=== PATIENT | male | born 1995 | race African-American/Black ===

== ENCOUNTER 2016-11-06 02:59 | Emergency (ER) | payer OTHER ==
[~2016-11-06] VITALS: Ht 193 cm; Wt 140.0 kg
[2016-11-06 03:03] VITALS: TEMP 36.9; Ht 193 cm; Wt 140.0 kg
[2016-11-06] MEDS ORDERED: FENTANYL CITRATE INJ 50 MCG/1 ML 2 ML VIAL IV STA ×2 (03:14→03:36)
[2016-11-06] MEDS ORDERED: SODIUM CHLORIDE 0.9% 1000ML 1,000 ML IV STA (03:14)
--- NOTE | 2016-11-06 03:23 | EMERGENCY ROOM VISIT NOTE ---
History Report prepared by Viktoriya: Dagmar Lyons Under the Supervision of: Dr. Lupe Kirkland M.D. First contact with patient: 03:13 Chief Complaint: ANKLE PAIN Stated Complaint: RIGHT ANKLE INJURY History of Present Illness The patient is a 21 year old male who presents to the Emergency Room with complaints of persistent right ankle pain that began prior to arrival. He currently rates his discomfort as an 8/10 in severity. The patient states that this evening he was drinking alcohol and fell down concrete stairs. He states that he looked back at his friends which caused him to fall down the stairs. The patient additionally notes that he hit his head during the fall. The patient denies any drug use. The patient's friends note that the patient is on the football team and they consulted their team doctor who instructed to bring the patient to the emergency department for further evaluation and treatment. Source of History: patient, friend Onset: prior to arrival Position: ankle (right) Symptom Intensity: 8/10 Timing: other (persistent) Note: Associated Symptoms: fall down the steps, head injury Review of Systems See HPI for pertinent positives & negatives. A total of 10 systems reviewed and were otherwise negative. Past Medical & Surgical No active medical problems. Family History No pertinent family history stated. Social History Smoking Status: Never Smoker Alcohol Use: occasionally Marital Status: single Occupation Status: [employer] student Current/Historical Medications Scheduled [Unknown Abx], 1 CAP PO BID Scheduled PRN Hydrocodone/Acetaminophen 5MG/325MG (Keene 5MG/325MG), 1-2 TABLETS PO Q6 PRN for Pain Pseudoephedrine (Sudafed), 30 MG PO TID PRN for congestion Pseudoephedrine-Guaifenesin (Mucinex D), 1 TAB PO BID PRN for CONGESTION Allergies Coded Allergies: No Known Allergies (Unverified , 11/06/16) Physical Exam Vital Signs Date Time Temp Pulse Resp B/P Pulse Ox O2 Delivery O2 Flow Rate FiO2 11/06/16 05:37 83 16 128/70 99 11/06/16 03:54 105 21 154/83 100 Nasal Cannula 2.0 11/06/16 03:21 101 11/06/16 03:03 36.9 110 20 147/93 96 Room Air Physical Exam Vital signs reviewed. General: Well-appearing male, in no significant distress. HEENT: Quarter size ecchymotic swelling to the left lateral bridge. No scleral icterus, PERRLA, neck supple, non-tender cervical spine. Cardiovascular: Regular rate and rhythm, no extra sounds. Pulmonary: Clear to auscultation bilaterally, normal work of breathing. Abdomen: Soft, nontender, nondistended, positive bowel sounds. Musculoskeletal: Obvious deformity of the right ankle with lateral deviation of the foot. Tenting at the medial malleolus. No open skin. Neurovascularly intact distally. Neurologic: Patient awake alert and oriented x 3, full strength in all 4 extremities. Cranial nerves 2 through 12 grossly intact. Skin: Warm, dry, no rash Medical Decision & Procedures ER Provider Diagnostic Interpretation: Radiology results as stated below per my review and radiologist interpretation: CT Head: No ICH, mass effect or edema. No skull fracture. Ethmoid and maxillary sinus disease. CT C spine: No evidence of fracture or malalignment. Straightening of the cervical lordosis likely relates to muscle spasm or positioning. Radiologist: Nick Boland MD Study read at [id number] and initial results transmitted at 7617 2 view right ankle x-ray: distal fibular fracture, laterally displaced with medial malleolar disruption, ankle fracture dislocation. 2 view ankle x-ray (post reduction): better positioning of the ankle dislocation with better position of the ankle mortis. Medial mortis widening is persistent. Redemonstration of the distal fibular fracture. *Over-read by Radiologist HEAD CT NONCONTRAST CT DOSE: HISTORY: CHI, ETOH TECHNIQUE: Multiaxial CT images of the head were performed without the use of intravenous contrast. Automated exposure control was utilized for this study. Comparison: None. Findings: Partial opacification of the ethmoid air cells. There is a fluid level within the left maxillary sinus. The mastoid air cells are clear. The fluid level is hyperdense and suggestive of hemorrhage. The calvarium and skull base are intact. The ventricles and sulci are within normal limits. There is no mass, hematoma, midline shift, or acute infarct. Impression: 1. No acute intracranial abnormality. 2. Hyperdense fluid level within the left maxillary sinus. Therefore, this may represent hemorrhage rather than acute sinusitis. Clinical correlation recommended. If there is left-sided facial trauma then a dedicated maxillofacial CT should be considered to exclude an occult facial fracture. Electronically signed by: Ramon Ponce M.D. 11/06/2016 6:38 AM Dictated Date/Time: 11/06/2016 6:33 AM Laboratory Results 11/06/16 03:25 Red Blood Count 4.53, Mean Corpuscular Volume 89.0, Mean Corpuscular Hemoglobin 30.9, Mean Corpuscular Hemoglobin Concent 34.7, Mean Platelet Volume 10.3, Neutrophils (%) (Auto) 48.8, Lymphocytes (%) (Auto) 43.4, Monocytes (%) (Auto) 7.0, Eosinophils (%) (Auto) 0.4, Basophils (%) (Auto) 0.3, Neutrophils # (Auto) 3.57, Lymphocytes # (Auto) 3.18, Monocytes # (Auto) 0.51, Eosinophils # (Auto) 0.03, Basophils # (Auto) 0.02 11/06/16 03:25 Test 11/06/16 03:25 White Blood Count 7.32 K/uL (4.8-10.8) Red Blood Count 4.53 M/uL (4.7-6.1) Hemoglobin 14.0 g/dL (14.0-18.0) Hematocrit 40.3 % (42-52) Mean Corpuscular Volume 89.0 fL (80-100) Mean Corpuscular Hemoglobin 30.9 pg (25-34) Mean Corpuscular Hemoglobin Concent 34.7 g/dl (32-36) Platelet Count 260 K/uL (130-400) Mean Platelet Volume 10.3 fL (7.4-10.4) Neutrophils (%) (Auto) 48.8 % Lymphocytes (%) (Auto) 43.4 % Monocytes (%) (Auto) 7.0 % Eosinophils (%) (Auto) 0.4 % Basophils (%) (Auto) 0.3 % Neutrophils # (Auto) 3.57 K/uL (1.4-6.5) Lymphocytes # (Auto) 3.18 K/uL (1.2-3.4) Monocytes # (Auto) 0.51 K/uL (0.11-0.59) Eosinophils # (Auto) 0.03 K/uL (0-0.5) Basophils # (Auto) 0.02 K/uL (0-0.2) RDW Standard Deviation 43.7 fL (36.4-46.3) RDW Coefficient of Variation 13.3 % (11.5-14.5) Immature Granulocyte % (Auto) 0.1 % Immature Granulocyte # (Auto) 0.01 K/uL (0.00-0.02) Anion Gap 13.0 mmol/L (3-11) Est Creatinine Clear Calc Drug Dose 104.2 ml/min Estimated GFR () 64.9 Estimated GFR (Non- 56.0 BUN/Creatinine Ratio 7.8 (10-20) Calcium Level 8.4 mg/dl (8.5-10.1) Total Bilirubin 0.3 mg/dl (0.2-1) Direct Bilirubin < 0.1 mg/dl (0-0.2) Aspartate Amino Transf (AST/SGOT) 32 U/L (15-37) Alanine Aminotransferase (ALT/SGPT) 36 U/L (12-78) Alkaline Phosphatase 129 U/L (45-117) Total Protein 7.7 gm/dl (6.4-8.2) Albumin 4.0 gm/dl (3.4-5.0) Ethyl Alcohol mg/dL 128.0 mg/dl (0-3) Laboratory results per my review. Medications Administered Medications (Trade) Dose Ordered Sig/Km Route Start Time Stop Time Status Last Admin Dose Admin Sodium Chloride (Nss 1000ml) 1,000 ml @ 999 mls/hr Q1H1M STAT IV 11/06/16 03:14 11/06/16 04:14 DC 11/06/16 03:26 999 MLS/HR Fentanyl Citrate (Fentanyl Inj) 100 mcg NOW STAT IV 11/06/16 03:14 11/06/16 03:17 DC 11/06/16 03:27 100 MCG Fentanyl Citrate (Fentanyl Inj) 100 mcg NOW STAT IV 11/06/16 03:36 11/06/16 03:37 DC 11/06/16 03:43 100 MCG Acetaminophen/ Hydrocodone Bitart (Keene 5/325mg Home Pack) 1 homepack UD ONCE PO 11/06/16 05:30 11/06/16 05:31 DC 11/06/16 05:30 1 HOMEPACK Procedure Patient was given 100 mcg of Fentanyl IV. He was in the supine position with the right knee at 90 degrees. Traction was placed on the knee and the right ankle deformity was exaggerated and reduction was attempted with good success. Pt tolerated procedure well. A posterior and sugar-tong splint was applied. ED Course 0313: Past medical records reviewed. The patient was evaluated in room B1. A complete history and physical examination was performed. 0314: Ordered Fentanyl Inj 100 mcg IV, Sodium Chloride 1000 ml @ 999 mls/hr IV. 0333: I reduced the patient's ankle dislocation at this time. See procedure note for further detail. 0336: Ordered Fentanyl Inj 100 mcg IV. 0445: I discussed the patients case with Dr. Monk, Orthopedics. He is going to look at the x-rays and call back. 0450: The laceration was repaired by Aminta Brito PA-C. See her note for further detail. 0454: I discussed the case with Dr. Monk, Orthopedics. He states that the patients x-rays look okay and will follow up with the patient as an outpatient. 0455: I reevaluated the patient and he is doing well. I discussed all the exam findings with him and I discussed the treatment plan. He verbalized complete understanding and agreement. He will be ready to go home shortly. 0530: Ordered Keene 5/325 mg Home pack 1 homepack Medical Decision Trauma: Intracranial injury, cervical spine injury, intrathoracic injury, intra- abdominal injury, musculoskeletal injury. This patient was evaluated and appeared to be in significant discomfort. There is obvious deformity of the right ankle. X-rays were obtained and reveal a fracture dislocation. The patient was given IV fentanyl and I did reduce the fracture. A posterior and sugar tong splint was applied. Postreduction films were obtained. A reveals a medial mortise widening however the ankle is in much better anatomic alignment. I did speak with Dr. Monk of orthopedics who reviewed the films. He has recommended nonweightbearing status and follow- up with his regional trainer. They will need to arrange for orthopedic evaluation and surgical management. The patient's facial laceration was approximated by Aminta Brito PA-C. Please see her notes for further details. Patient was discharged with Keene home pack and a prescription was sent to the pharmacy. He was advised not to drive or to take Tylenol with this medication. His x-rays and CAT scans were burned onto disc. The patient was discharged with these records. He will return to the ER immediately for worsening of symptoms or any medical concerns. Consults Time Called: [phone] Consulting Physician: Dr. Monk, Orthopedics Returned Call: [phone] I discussed the patients case with Dr. Monk, Orthopedics. He is going to look at the x-rays and call back. Impression Primary Impression: Dislocation of ankle joint Additional Impressions: Fracture of distal end of right fibula Facial laceration Scribe Attestation The scribe's documentation has been prepared under my direction and personally reviewed by me in its entirety. I confirm that the note above accurately reflects all work, treatment, procedures, and medical decision making performed by me. Departure Information Dispostion Home / Self-Care Prescriptions Hydrocodone/Acetaminophen 5MG/325MG (Keene 5MG/325MG) Tab 1-2 TABLETS PO Q6 Y for Pain, #30 TAB Prov: Lupe Kirkland M.D. 11/06/16 Referrals Marcelo Isaac M.D. (PCP) Forms HOME CARE DOCUMENTATION FORM, IMPORTANT VISIT INFORMATION Patient Instructions My [facility], [facility] Additional Instructions Diagnosis: Right ankle fracture and dislocation Keene one to 2 tablets every 6 hours as needed for severe pain. Do not drive or take Tylenol with this medication. Ice and elevate the right leg as much as possible. Non weight bearing to right foot, use crutches. Contact your regional trainer later today for assistance in arranging follow- up. You should see an orthopedic surgeon within the next 2 days. He will need to have surgical intervention for definitive care. Return to the emergency department immediately for worsening of symptoms or any medical concerns. Problem Qualifiers Additional Impressions: Fracture of distal end of right fibula Encounter type: initial encounter Fracture type: closed Fracture morphology : unspecified fracture morphology Qualified Codes: S82.831A - Other fracture of upper and lower end of right fibula, initial encounter for closed fracture
[2016-11-06 03:37] LABS: BASO % 0.3 %; BASO ABS # 0.02 K/uL (0-0.2); COMPLETE YES; EOS % 0.4 %; HEMATOCRIT 40.3 % (42-52); IG% 0.1 %; LYMPH % 43.4 %; LYMPH ABS # 3.18 K/uL (1.2-3.4); MEAN CORPUSCULAR HEMOGLOBIN 30.9 pg (25-34); MEAN CORPUSCULAR HGB CONC 34.7 g/dl (32-36); MEAN PLATELET VOLUME 10.3 fL (7.4-10.4); NEUT % 48.8 %; PLATELET COUNT 260 K/uL (130-400); RED BLOOD COUNT 4.53 M/uL (4.7-6.1); WHITE BLOOD COUNT 7.32 K/uL (4.8-10.8)
[2016-11-06] MEDS ORDERED: PSEU30TA20 PO (03:46)
[2016-11-06] MEDS ORDERED: PSEU60TA80 PO (03:47)
[2016-11-06] MEDS ORDERED: UNKNOWN ABX PO (03:48)
[2016-11-06 03:55] LABS: ALT/SGPT 36 U/L (12-78); AST/SGOT 32 U/L (15-37); BLOOD UREA NITROGEN 13 mg/dl (7-18); BUN/CREATININE RATIO 7.8 (10-20); CALCIUM 8.4 mg/dl (8.5-10.1); CARBON DIOXIDE 22 mmol/L (21-32); CHLORIDE 106 mmol/L (98-107); GLUCOSE 92 mg/dl (70-99); POTASSIUM 3.6 mmol/L (3.5-5.1); SODIUM 141 mmol/L (136-145)
[2016-11-06 03:58] LABS: ALKALINE PHOSPHATASE 129 U/L (45-117)
--- NOTE | 2016-11-06 04:58 | EMERGENCY ROOM VISIT NOTE ---
ED Visit Note I was asked to do the laceration repair of this patient. Location: right eyebrow Total length: 2cm Complexity: simple Verbal consent was obtained after the risks and benefits were explained, including but not limited to bleeding, scarring, infection, pain, and bone/joint /nerve damage. At this time, the risks of the procedure are less than the risks of NOT performing the procedure. A time out was taken and the correct patient and site identified. The skin was prepped with betadine. Copious irrigation was performed using NS. The skin was re-prepped with betadine and a sterile field set. The wound was explored for foreign bodies and none found. Examination revealed no injury to deep structures such as tendons, bone, or significant blood vessels. Debridement was not performed. The wound edges were approximated using Dermabond. Patient refused sutures and understood risk such as increased scar and/or infection. He requested Dermabond. The wound was not gaping. Hemostasis and excellent approximation was achieved. Detailed wound care instructions and signs and symptoms of infection reviewed with the pt. No complications and the patient tolerated the procedure well. Current/Historical Medications Scheduled [Unknown Abx], 1 CAP PO BID Scheduled PRN Pseudoephedrine (Sudafed), 30 MG PO TID PRN for congestion Pseudoephedrine-Guaifenesin (Mucinex D), 1 TAB PO BID PRN for CONGESTION Allergies Coded Allergies: No Known Allergies (Unverified , 11/06/16) Vital Signs Date Time Temp Pulse Resp B/P Pulse Ox O2 Delivery O2 Flow Rate FiO2 11/06/16 03:54 105 21 154/83 100 Nasal Cannula 2.0 11/06/16 03:21 101 11/06/16 03:03 36.9 110 20 147/93 96 Room Air Laboratory Results 11/06/16 03:25 Red Blood Count 4.53, Mean Corpuscular Volume 89.0, Mean Corpuscular Hemoglobin 30.9, Mean Corpuscular Hemoglobin Concent 34.7, Mean Platelet Volume 10.3, Neutrophils (%) (Auto) 48.8, Lymphocytes (%) (Auto) 43.4, Monocytes (%) (Auto) 7.0, Eosinophils (%) (Auto) 0.4, Basophils (%) (Auto) 0.3, Neutrophils # (Auto) 3.57, Lymphocytes # (Auto) 3.18, Monocytes # (Auto) 0.51, Eosinophils # (Auto) 0.03, Basophils # (Auto) 0.02 11/06/16 03:25 Test 11/06/16 03:25 White Blood Count 7.32 K/uL (4.8-10.8) Red Blood Count 4.53 M/uL (4.7-6.1) Hemoglobin 14.0 g/dL (14.0-18.0) Hematocrit 40.3 % (42-52) Mean Corpuscular Volume 89.0 fL (80-100) Mean Corpuscular Hemoglobin 30.9 pg (25-34) Mean Corpuscular Hemoglobin Concent 34.7 g/dl (32-36) Platelet Count 260 K/uL (130-400) Mean Platelet Volume 10.3 fL (7.4-10.4) Neutrophils (%) (Auto) 48.8 % Lymphocytes (%) (Auto) 43.4 % Monocytes (%) (Auto) 7.0 % Eosinophils (%) (Auto) 0.4 % Basophils (%) (Auto) 0.3 % Neutrophils # (Auto) 3.57 K/uL (1.4-6.5) Lymphocytes # (Auto) 3.18 K/uL (1.2-3.4) Monocytes # (Auto) 0.51 K/uL (0.11-0.59) Eosinophils # (Auto) 0.03 K/uL (0-0.5) Basophils # (Auto) 0.02 K/uL (0-0.2) RDW Standard Deviation 43.7 fL (36.4-46.3) RDW Coefficient of Variation 13.3 % (11.5-14.5) Immature Granulocyte % (Auto) 0.1 % Immature Granulocyte # (Auto) 0.01 K/uL (0.00-0.02) Anion Gap 13.0 mmol/L (3-11) Est Creatinine Clear Calc Drug Dose 104.2 ml/min Estimated GFR () 64.9 Estimated GFR (Non- 56.0 BUN/Creatinine Ratio 7.8 (10-20) Calcium Level 8.4 mg/dl (8.5-10.1) Total Bilirubin 0.3 mg/dl (0.2-1) Direct Bilirubin < 0.1 mg/dl (0-0.2) Aspartate Amino Transf (AST/SGOT) 32 U/L (15-37) Alanine Aminotransferase (ALT/SGPT) 36 U/L (12-78) Alkaline Phosphatase 129 U/L (45-117) Total Protein 7.7 gm/dl (6.4-8.2) Albumin 4.0 gm/dl (3.4-5.0) Ethyl Alcohol mg/dL 128.0 mg/dl (0-3) Medications Administered Medications (Trade) Dose Ordered Sig/Km Route Start Time Stop Time Status Last Admin Dose Admin Sodium Chloride (Nss 1000ml) 1,000 ml @ 999 mls/hr Q1H1M STAT IV 11/06/16 03:14 11/06/16 04:14 DC 11/06/16 03:26 999 MLS/HR Fentanyl Citrate (Fentanyl Inj) 100 mcg NOW STAT IV 11/06/16 03:14 11/06/16 03:17 DC 11/06/16 03:27 100 MCG Fentanyl Citrate (Fentanyl Inj) 100 mcg NOW STAT IV 11/06/16 03:36 11/06/16 03:37 DC 11/06/16 03:43 100 MCG Departure Information Referrals Marcelo Isaac M.D. (PCP) Forms HOME CARE DOCUMENTATION FORM, IMPORTANT VISIT INFORMATION Patient Instructions [facility]
[2016-11-06] MEDS ORDERED: HYDR-5688 PO (05:23)
[2016-11-06] MEDS ORDERED: NORCO 5/325MG HOME PACK PO ONE (05:30)
[2016-11-06 05:37] VITALS: BP 128/70; PULSE 83; O2SAT 99
--- NOTE | 2016-11-06 06:40 | DIAGNOSTIC IMAGING REPORT ---
HEAD CT NONCONTRAST CT DOSE: HISTORY: CHI, ETOH TECHNIQUE: Multiaxial CT images of the head were performed without the use of intravenous contrast. Automated exposure control was utilized for this study. Comparison: None. Findings: Partial opacification of the ethmoid air cells. There is a fluid level within the left maxillary sinus. The mastoid air cells are clear. The fluid level is hyperdense and suggestive of hemorrhage. The calvarium and skull base are intact. The ventricles and sulci are within normal limits. There is no mass, hematoma, midline shift, or acute infarct. Impression: 1. No acute intracranial abnormality. 2. Hyperdense fluid level within the left maxillary sinus. Therefore, this may represent hemorrhage rather than acute sinusitis. Clinical correlation recommended. If there is left-sided facial trauma then a dedicated maxillofacial CT should be considered to exclude an occult facial fracture. Electronically signed by: Ramon Ponce M.D. 11/06/2016 6:38 AM Dictated Date/Time: 11/06/2016 6:33 AM
--- NOTE | 2016-11-06 06:44 | DIAGNOSTIC IMAGING REPORT ---
CERVICAL SPINE CT CT DOSE: 1284.15 mGy.cm HISTORY: neck pain TECHNIQUE: Multiaxial CT images of the cervical spine were performed and reformatted in the sagittal and coronal plane without the use of contrast. COMPARISON: None. FINDINGS: No fractures. No subluxation. Prevertebral soft tissues and the C1-C2 interval are intact. No pneumothorax. Reversal of the normal lordotic curvature. IMPRESSION: No fractures within the cervical spine. Electronically signed by: Ramon Ponce M.D. 11/06/2016 6:42 AM Dictated Date/Time: 11/06/2016 6:38 AM
--- NOTE | 2016-11-06 08:06 | DIAGNOSTIC IMAGING REPORT ---
RIGHT ANKLE 2 VIEWS HISTORY: Right ankle deformity Right COMPARISON: None. FINDINGS: Slightly comminuted and displaced fracture within the distal shaft of the right fibula. This demonstrates 7 mm of lateral displacement and 17 mm of overlap. There is also posterior angulation. There is associated lateral and posterior dislocation of the talus in relation to the tibia. Diffuse soft tissue swelling. No radiopaque foreign bodies. IMPRESSION: Right ankle fracture/dislocation as described above. Electronically signed by: Ramon Ponce M.D. 11/06/2016 8:04 AM Dictated Date/Time: 11/06/2016 8:03 AM
--- NOTE | 2016-11-06 08:08 | DIAGNOSTIC IMAGING REPORT ---
RIGHT ANKLE 2 VIEWS CLINICAL HISTORY: fracture. post reduction Right COMPARISON STUDY: Right ankle 11/06/2016. FINDINGS: Overlying cast material obscures fine bony detail. Improved anatomic alignment of the right ankle fracture/dislocation status post reduction. There still remains 1 cm of lateral subluxation of the talus in relation to the tibia. There is also 7 mm of posterior displacement of the distal fibular fracture. IMPRESSION: Improved alignment of the right ankle fracture/dislocation status post reduction. However, the alignment is not anatomic at this time as described above. Electronically signed by: Ramon Ponce M.D. 11/06/2016 8:06 AM Dictated Date/Time: 11/06/2016 8:04 AM
== END 2016-11-06 05:43 | disposition home or self-care (01) ==
LOC: C.EDB 03:01
DX: S93.04XA Dislocation of right ankle joint, initial encounter (principal); S82.831A Other fracture of upper and lower end of right fibula, initial encounter for closed fracture; S01.81XA Laceration without foreign body of other part of head, initial encounter; W10.9XXA Fall (on) (from) unspecified stairs and steps, initial encounter

== ENCOUNTER → 2016-11-19 | Outpatient (CLI) | payer OTHER ==
[~2016-11-19] MED LIST: HYDR-5688 PO; PSEU30TA20 PO; PSEU60TA80 PO; UNKNOWN ABX PO
--- NOTE | 2016-11-19 09:16 | DIAGNOSTIC IMAGING REPORT ---
RIGHT ANKLE 3 VIEWS HISTORY: CLOSED FX OF RIGHT ANKLE Right COMPARISON: Right ankle 11/06/2016. FINDINGS: Patient is status post open reduction and internal fixation of a distal right fibular fracture. The alignment appears anatomic. The hardware appears intact. No dislocation. Soft tissue swelling has improved. There may be a small amount of bony bridging at the distal portion of the fracture suggestive of healing. There is also a tiny volume fracture the tip of the medial malleolus. IMPRESSION: Status post open reduction and internal fixation of a distal right fibular fracture. The hardware appears intact. There may be slight interval healing within the fracture. The alignment is anatomic. Electronically signed by: Ramon Ponce M.D. 11/19/2016 9:15 AM Dictated Date/Time: 11/19/2016 9:13 AM
== END | disposition home or self-care (01) ==
LOC: C.RDSM 09:00
PROVIDERS: ATTEND Orthopaedic Surgery
DX: S82.891A Other fracture of right lower leg, initial encounter for closed fracture (principal); X58.XXXA Exposure to other specified factors, initial encounter

== ENCOUNTER → 2016-12-22 | Outpatient (CLI) | payer OTHER ==
--- NOTE | 2016-12-22 15:01 | DIAGNOSTIC IMAGING REPORT ---
RIGHT ANKLE 3 VIEWS CLINICAL HISTORY: Follow-up right ankle fracture. FINDINGS: 3 views the right ankle are compared to study dated 11/19/2016. The skeletal structures are well mineralized. Again seen is a healing spiral fracture of the distal fibula. Alignment is unchanged from previous. Postoperative changes from buttress plate fixation of the distal fibula with a cortical lag screw transfixes the distal tibia and fibula are similar to previous. The orthopedic hardware appears intact. An age indeterminant avulsion injury is again suggested from the inferior aspect of the medial malleolus. There is mild degenerative spurring along the dorsal aspect of the tarsal bones. A small plantar calcaneal enthesophyte is noted. There is a joint effusion. Soft tissue edema is seen around the ankle. IMPRESSION: 1. Soft tissue swelling and joint effusion. No acute fracture is seen. 2. Postoperative findings are again noted, and there is unchanged alignment of a healing spiral fracture through the distal fibula as compared to 11/19/2016. Electronically signed by: Abdon Sykes M.D. 12/22/2016 3:00 PM Dictated Date/Time: 12/22/2016 2:57 PM
== END | disposition home or self-care (01) ==
LOC: C.RDSM 12:39
PROVIDERS: ATTEND Orthopaedic Surgery
DX: S82.891D Other fracture of right lower leg, subsequent encounter for closed fracture with routine healing (principal); X58.XXXD Exposure to other specified factors, subsequent encounter; M25.471 Effusion, right ankle; M79.89 Other specified soft tissue disorders

== ENCOUNTER → 2017-01-11 | Outpatient (CLI) | payer OTHER ==
--- NOTE | 2017-01-11 15:37 | DIAGNOSTIC IMAGING REPORT ---
RIGHT ANKLE MIN 3 VIEWS CLINICAL HISTORY: F/U POST ORIF RIGHT ANKLE Right fracture COMPARISON: 12/22/2016 DISCUSSION: Unchanged findings of an open reduction internal fixation of a oblique and a spiral fracture of the distal fibula. Alignment remains anatomic. IMPRESSION: Subtle progressive healing of a spiral fracture of the distal fibula. Unchanged alignment as well as internal hardware configuration. Electronically signed by: Jono Sibley M.D. 01/11/2017 3:36 PM Dictated Date/Time: 01/11/2017 3:34 PM
== END | disposition home or self-care (01) ==
LOC: C.RDSM 15:24
PROVIDERS: ATTEND Orthopaedic Surgery
DX: S82.891D Other fracture of right lower leg, subsequent encounter for closed fracture with routine healing (principal); X58.XXXD Exposure to other specified factors, subsequent encounter

== ENCOUNTER → 2017-02-24 | Outpatient (CLI) | payer OTHER ==
--- NOTE | 2017-02-24 13:05 | DIAGNOSTIC IMAGING REPORT ---
RIGHT ANKLE MIN 3 VIEWS CLINICAL HISTORY: 22 years-old Male presenting with postop status post screw removal. TECHNIQUE: Frontal, mortise, and lateral views of the right ankle were obtained. Bilateral mortise views and standing position were also obtained. COMPARISON: 01/11/2017. FINDINGS: Interval removal of the syndesmotic screw across the tibiofibular articulation. Cortical compression plate and screw fixation across the obliquely oriented distal fibular fracture at the level of the syndesmosis. Bridging callus formation noted. No apparent hardware complication. Right and left ankle mortise intact and symmetric. Small osseous fragment at the medial clear space again noted, likely avulsion fracture of the medial malleolus. No radiographic evidence of posterior malleolus fracture, although presumed disruption of the posterior syndesmosis. Soft tissues within normal limits. IMPRESSION: Expected postoperative appearance status post removal of the syndesmotic screw. Continued interval healing of the Nieto B stage IV fracture. Electronically signed by: Lucian Palma M.D. 02/24/2017 1:03 PM Dictated Date/Time: 02/24/2017 1:00 PM
== END | disposition home or self-care (01) ==
LOC: C.RDSM 14:32
PROVIDERS: ATTEND Orthopaedic Surgery
DX: S82.891D Other fracture of right lower leg, subsequent encounter for closed fracture with routine healing (principal); X58.XXXD Exposure to other specified factors, subsequent encounter